=== PATIENT | male | born 1990 | race Caucasian/White ===

== ENCOUNTER → 2018-04-12 | Outpatient (CLI) | payer BC ==
[~2018-04-12] MED LIST: PANT40TA65 PO
[2018-04-12 10:26] LABS: PLATELET COUNT, AUTOMATED 220 K/uL (150-450)
--- NOTE | 2018-04-12 11:23 | RADIOLOGY IMAGING REPORT ---
FACILITY: [facility] - [place] PATIENT NAME: Willie Haynes : 1990 MR: [id number] V: [id number] EXAM DATE: ORDERING PHYSICIAN: KAREY BOSS TECHNOLOGIST: [place] [facility] [place] : 1990 Visit/Account:[id number] Date of Sevice: 04/12/2018 Exam type: ACUTE ABDOMEN SERIES 3 VIEW History: gerd Comparison: Two view chest March 19, 2008. Findings: PA view the chest reveals no evidence of pulmonary consolidation pleural effusions or pulmonary edema . The cardiac silhouette is normal in size. Flat and upright views of the abdomen demonstrate a small air-fluid level in the stomach. The remain ying the bowel gas pattern is relatively nonspecific. No gross evidence of organomegaly. The visuali zed bones are unremarkable for age. IMPRESSION: 1. Small air-fluid level in the stomach otherwise nonspecific bowel gas pattern Report Dictated By: Mariola Cleveland MD at 04/12/2018 11:08 AM Report E-Signed By: Mariola Cleveland MD at 04/12/2018 11:19 AM [id number]:[email or web address]
== END ==
LOC: LAB 09:58
PROVIDERS: ATTEND Internal Medicine
DX: K21.9 Gastro-esophageal reflux disease without esophagitis (principal)
CPT/HCPCS: 36415; 74022; 81001; 82040; 82150; 82247; 82310; 82374; 82435; 82565; 82947; 83516; 83690; 84075; 84132; 84155; 84295; 84443; 84450; 84460; 84520; 85025; 86677

== ENCOUNTER → 2018-04-19 | Outpatient (CLI) | payer BC ==
--- NOTE | 2018-04-19 09:01 | RADIOLOGY IMAGING REPORT ---
FACILITY: [facility] - [place] PATIENT NAME: Willie Haynes : 1990 MR: [id number] V: [id number] EXAM DATE: ORDERING PHYSICIAN: KAREY BOSS TECHNOLOGIST: Location: [facility] - [place] Patient: Willie Haynes : 1990 Visit/Account:[id number] Date of Sevice: 04/19/2018 ABDOMEN COMPLETE History: Abdominal pain with GERD. Evaluate entire abdomen with ultrasound. Comparison study: None Procedure: There has been satisfactory and complete grayscale ultrasonic evaluation of the abdomen. Findings: Liver: The liver has diffusely increased echotexture. There is no ascites and there is no hepatic ma ss. There is hepatopedal blood flow in the main portal vein. Biliary: The gallbladder is normal and there is no gallstone disease or biliary ductal dilatation. T he sonographic Perea sign is negative. The common bile duct measures 0.1 mm. Spleen: The spleen is enlarged measuring 13 cm in its greatest sagittal dimension. Pancreas: The pancreas is obscured due to overlying bowel gas. Kidneys: There is no hydronephrosis on the right or left side. Subtle foci of increased echotexture in both kidneys is not associated hydronephrosis or focal caliectasis. The right resistive index is 0.58. The left resistive index is 0.62. Aorta and IVC: Flow is identified in both the aorta and IVC. IMPRESSION: 1. Diffuse fatty infiltration of the liver without findings of ascites or liver mass. 2. Normal gallbladder without gallstone disease or biliary ductal dilatation. 3. No hydronephrosis in either kidney. Small foci of increased echotexture could represent nonobstr ucting calculi or normal variation in the medullary adipose tissue. 4. Splenomegaly. The spleen measures 13 cm in its greatest sagittal dimension. Report Dictated By: Tino Owusu MD at 04/19/2018 8:51 AM Report E-Signed By: Tino Owusu MD at 04/19/2018 8:56 AM WSN:[email or web address]
== END ==
LOC: US 01:16
PROVIDERS: ATTEND Internal Medicine
DX: K76.0 Fatty (change of) liver, not elsewhere classified (principal); R16.1 Splenomegaly, not elsewhere classified
CPT/HCPCS: 76700

== ENCOUNTER → 2018-04-26 | Outpatient (CLI) | payer BC | LOC: LAB 09:51 | PROVIDERS: ATTEND Internal Medicine | DX: K76.0 Fatty (change of) liver, not elsewhere classified (principal) | CPT/HCPCS: 36415; 82465; 83718; 84478 ==